=== PATIENT | female | born 1970 | race American Indian/Alaskan Native ===

== ENCOUNTER 2019-06-23 12:39 | Emergency (ER) | payer MEDICARE ==
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
[2019-06-23 13:09] VITALS: BP 147/97
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
== END 2019-06-23 16:07 | disposition home or self-care (01) ==
LOC: ED 12:39
DX: M79.18 Myalgia, other site (principal); K21.9 Gastro-esophageal reflux disease without esophagitis; J45.909 Unspecified asthma, uncomplicated
CPT/HCPCS: 72040; 72100